=== PATIENT | female | born 1965 | race Caucasian/White ===

== ENCOUNTER 2019-05-14 08:01 | Emergency (ER) | payer MEDICAID ==
[~2019-05-14] VITALS: Ht 152.4 cm; Wt 105.7 kg
[2019-05-14 08:05] VITALS: BP 141/84
[2019-05-14 09:45] VITALS: BP 137/70
== END 2019-05-14 09:45 | disposition home or self-care (01) ==
LOC: MED 08:01
DX: J20.9 Acute bronchitis, unspecified (principal); H92.03 Otalgia, bilateral; M54.6 Pain in thoracic spine; I10 Essential (primary) hypertension; Z86.39 Personal history of other endocrine, nutritional and metabolic disease; Z98.890 Other specified postprocedural states
CPT/HCPCS: 99283